=== PATIENT | female | born 1960 | race Caucasian/White ===

== ENCOUNTER → 2019-12-09 | Emergency (ER) | payer SELFPAY ==
[~2019-12-09] VITALS: Ht 162.6 cm; Wt 68.0 kg
[~2019-12-09] MED LIST: ONDANSETRON HCL 4 MG/2 ML VIAL IV ONE; OXYB5TAB24 PO; [UNRECOGNIZED DRUG - CODE] PO; [UNRECOGNIZED DRUG - CODE] PO; cefTRIAXone 1GM/50ML D5W 50 ML IV ONE; cloNIDine HCL 0.1 MG TAB PO ONE
[2019-12-09 20:09] LABS: Urine Bacteria FEW /hpf (None Seen); Urine Blood 1+ /uL (Negative); Urine Hyaline Cast FEW /lpf (0 - 2); Urine Mucus FEW (None Seen); Urine Specific Gravity 1.024 (1.001-1.035); Urine WBC 153 /hpf (0 - 5)
[2019-12-09 20:18] LABS: Basophils # (auto) 0.1 10 ^3/uL (0-0.2); Hemoglobin 15.3 g/dL (12.2-16.2); Monocytes # (auto) 0.5 10 ^3/uL (0-1.3); Monocytes % (auto) 5.9 % (0.0-12.0)
[2019-12-09 20:20] LABS: Basophils % (auto) 0.7 % (0.0-2.0); Eosinophils # (auto) 0.1 10 ^3/uL (0-0.8); Eosinophils % (auto) 0.7 % (0.0-7.0); Hematocrit 44.1 % (36.0-46.0); Lymphocytes # (auto) 2.5 10 ^3/uL (0.4-5.4); Lymphocytes % (auto) 27.6 % (10.0-50.0); Mean Corpuscular Hemoglobin 36.7 pg (28.0-32.0); Mean Corpuscular Hgb Conc. 34.7 g/dL (32.0-36.0); Neutrophils # (auto) 5.9 10 ^3/uL (1.6-8.6); Neutrophils % (auto) 65.1 % (37.0-80.0); Platelet Count (auto) 177 10^3/uL (140-450); Red Blood Cells 4.16 10^6/uL (4.0-5.20); Red Cell Distribution Width 13.9 % (11.8-14.3)
[2019-12-09 20:24] LABS: Amphetamine Screen, Urine NEGATIVE (NEGATIVE); Barbiturate Scree,Urine NEGATIVE (NEGATIVE); Benzodiazephine Screen, Urine NEGATIVE (NEGATIVE); Cannabinoid Screen, Urine POSITIVE (NEGATIVE); Cocaine Screen, Urine NEGATIVE (NEGATIVE); Opiate Scree,Urine NEGATIVE (NEGATIVE); Phencyclidine Screen, Urine NEGATIVE (NEGATIVE)
[2019-12-09 20:32] LABS: Alanine Aminotransferase 109 U/L (13-56); Albumin 3.6 g/dL (3.4-5.0); Anion Gap 12 (5-15); Aspartate Aminotransferase 116 U/L (15-37); BUN/Creatinine Ratio 23.2; Blood Urea Nitrogen 16 mg/dL (7-18); Calcium 8.6 mg/dL (8.5-10.1); Carbon Dioxide 20 mmol/L (21-32); Chloride 105 mmol/L (98-107); GFR African American 112 mL/min; GFR Non-African American 93 mL/min; Glucose 93 mg/dL (74-106); Potassium 3.1 mmol/L (3.5-5.1); Sodium 137 mmol/L (136-145)
[2019-12-09 20:37] LABS: Alkaline Phosphatase 85 U/L (45-117); Bilirubin, Total 0.4 mg/dL (0.2-1.0); Total Protein 8.2 g/dL (6.4-8.2)
[2019-12-09 20:43] LABS: INR 1.01 (0.9-1.15); Partial Thromboplastin Time 27.1 sec (23.64-32.05)
[2019-12-09 23:00] VITALS: BP 170/83
== END | disposition home or self-care (01) ==
LOC: EDUNIT# 18:38 → EDBD 18:48 → ER 18:49
DX: I16.0 Hypertensive urgency (principal); J01.00 Acute maxillary sinusitis, unspecified; N39.0 Urinary tract infection, site not specified; I48.91 Unspecified atrial fibrillation; F17.210 Nicotine dependence, cigarettes, uncomplicated; Z88.0 Allergy status to penicillin; Z88.6 Allergy status to analgesic agent
CPT/HCPCS: 36415; 71045; 80053; 80307; 81001; 84484; 85025; 85610; 85730; 87086; 93005; 96365; 96375; 99285; J0696; J2405

== ENCOUNTER 2020-03-16 20:03 | Emergency (ER) | payer MEDICAID ==
[~2020-03-16] VITALS: Ht 162.6 cm; Wt 65.8 kg
[~2020-03-16 20:03] MED LIST changes: -ONDANSETRON HCL 4 MG/2 ML VIAL IV ONE; -cefTRIAXone 1GM/50ML D5W 50 ML IV ONE; -cloNIDine HCL 0.1 MG TAB PO ONE
[2020-03-16 20:43] VITALS: BP 185/105
[2020-03-16] MEDS ORDERED: cloNIDine HCL 0.1 MG TAB PO ONE (21:00)
== END 2020-03-17 01:37 | disposition left against medical advice (07) ==
LOC: ER 20:04
DX: R20.0 Anesthesia of skin (principal); Z53.21 Procedure and treatment not carried out due to patient leaving prior to being seen by health care provider

== ENCOUNTER 2020-03-17 15:07 | Emergency (ER) | payer MEDICAID ==
[~2020-03-17] VITALS: Ht 162.6 cm; Wt 68.0 kg
[2020-03-17 16:14] VITALS: BP 149/83
== END 2020-03-17 16:51 | disposition home or self-care (01) ==
LOC: ER 15:07
DX: L40.9 Psoriasis, unspecified (principal); Z76.0 Encounter for issue of repeat prescription; I10 Essential (primary) hypertension

== ENCOUNTER 2021-03-25 22:32 | Inpatient (IN) | payer MEDICAID, OTHER ==
[~2021-03-25] VITALS: Ht 162.6 cm; Wt 71.1 kg
[2021-03-25 23:35] LABS: Eosinophils # (auto) 0.1 10 ^3/uL (0-0.8); Mean Corpuscular Hemoglobin 36.2 pg (28.0-32.0); Monocytes # (auto) 0.6 10 ^3/uL (0-1.3); Nucleated Red Blood Cells % 0.1 %
[2021-03-25 23:37] LABS: Basophils # (auto) 0.1 10 ^3/uL (0-0.2); Basophils % (auto) 1.4 % (0.0-2.0); Hematocrit 42.5 % (36.0-46.0); Hemoglobin 15.1 g/dL (12.2-16.2); Lymphocytes # (auto) 2.6 10 ^3/uL (0.4-5.4); Lymphocytes % (auto) 36.3 % (10.0-50.0); Mean Corpuscular Hgb Conc. 35.4 g/dL (32.0-36.0); Mean Corpuscular Volume 102.2 fL (80.0-100.0); Monocytes % (auto) 8.6 % (0.0-12.0); Neutrophils # (auto) 3.8 10 ^3/uL (1.6-8.6); Neutrophils % (auto) 52.7 % (37.0-80.0); Platelet Count (auto) 169 10^3/uL (140-450); Red Blood Cells 4.16 10^6/uL (4.0-5.20); Red Cell Distribution Width 16.1 % (11.8-14.3); White Blood Cell 7.3 10^3/uL (4.4-10.8)
[2021-03-25 23:50] LABS: Albumin 3.3 g/dL (3.4-5.0); Calcium 8.7 mg/dL (8.5-10.1); Potassium 3.9 mmol/L (3.5-5.1)
[2021-03-25 23:53] LABS: BUN/Creatinine Ratio 15.4; Bilirubin, Total 0.4 mg/dL (0.2-1.0); Total Protein 7.6 g/dL (6.4-8.2)
[2021-03-26 01:52] LABS: Urine Bacteria FEW /hpf (None Seen); Urine Hyaline Cast MANY /lpf (0 - 2); Urine Mucus MODERATE (None Seen); Urine Specific Gravity 1.027 (1.001-1.035); Urine WBC 24 /hpf (0 - 5)
[2021-03-26 02:06] LABS: Urine Blood TRACE /uL (Negative)
[2021-03-26] MEDS ORDERED: MORPHINE SULF INJ 2 MG/ML SYRINGE 1ML IV PRN (07:00)
[2021-03-26] MEDS ORDERED: DOCUSATE SOD 100 MG CAP PO PRN (07:00)
[2021-03-26] MEDS ORDERED: HYDROcodone-ACET 5/325MG TAB PO PRN (07:00)
[2021-03-26] MEDS ORDERED: NITROGLYCERIN 0.4 MG SL TAB SL PRN (07:00)
[2021-03-26] MEDS ORDERED: ACETAMINOPHEN 325 MG TAB PO PRN (07:00)
[2021-03-26] MEDS ORDERED: ONDANSETRON HCL 4 MG/2 ML VIAL IV PRN (07:00)
[2021-03-26] MEDS: SOD CHL 0.45% 1,000 ML IV SCH ×2 (07:32→20:20)
[2021-03-26 07:45] LABS: Basophils # (auto) 0.2 10 ^3/uL (0-0.2); Basophils % (auto) 2.8 % (0.0-2.0); Eosinophils # (auto) 0.1 10 ^3/uL (0-0.8); Eosinophils % (auto) 2.2 % (0.0-7.0); Hematocrit 38.5 % (36.0-46.0); Hemoglobin 13.6 g/dL (12.2-16.2); Lymphocytes # (auto) 2.5 10 ^3/uL (0.4-5.4); Lymphocytes % (auto) 42.8 % (10.0-50.0); Mean Corpuscular Hemoglobin 36.1 pg (28.0-32.0); Mean Corpuscular Hgb Conc. 35.3 g/dL (32.0-36.0); Mean Corpuscular Volume 102.3 fL (80.0-100.0); Monocytes # (auto) 0.5 10 ^3/uL (0-1.3); Monocytes % (auto) 9.2 % (0.0-12.0); Neutrophils # (auto) 2.6 10 ^3/uL (1.6-8.6); Nucleated Red Blood Cells % 0.1 %; Platelet Count (auto) 134 10^3/uL (140-450); Red Blood Cells 3.76 10^6/uL (4.0-5.20); Red Cell Distribution Width 16.6 % (11.8-14.3); White Blood Cell 5.9 10^3/uL (4.4-10.8)
[2021-03-26 07:56] LABS: Albumin 2.8 g/dL (3.4-5.0); BUN/Creatinine Ratio 24.8; Potassium 3.6 mmol/L (3.5-5.1)
[2021-03-26 07:59] LABS: Bilirubin, Total 0.3 mg/dL (0.2-1.0); Total Protein 6.8 g/dL (6.4-8.2)
[2021-03-26] MEDS ORDERED: levoFLOXacin 500MG 100 ML IV ONE (10:00)
[2021-03-26] MEDS: MULTIPLE VITAMIN TAB PO SCH (10:31)
[2021-03-26] MEDS: ASCORBIC ACID 500 MG TAB PO SCH ×2 (10:31→21:18)
[2021-03-26] MEDS: ZINC SULFATE 220mg CAP or TAB PO SCH (10:31)
[2021-03-26] MEDS: FAMOTIDINE 20 MG TAB PO SCH (10:31)
[2021-03-26] MEDS: HEPARIN SODIUM (PORCINE) 5000 UNITS/ML 1ML VIAL SC SCH ×2 (10:31→21:30)
[2021-03-26] MEDS ORDERED: LISI40TA11 PO (11:42)
[2021-03-26 12:30] VITALS: BP 105/64
[2021-03-26] MEDS: SODIUM CHLOR 0.9% PF (SALINE LOCK) 10ML VIAL/SYR IV SCH ×2 (14:00→21:19)
[2021-03-26 17:00] VITALS: BP 122/74
[2021-03-26 20:00] VITALS: BP 146/80
[2021-03-26 22:00] VITALS: BP 156/80
[2021-03-27 05:26] LABS: Basophils # (auto) 0 10 ^3/uL (0-0.2); Basophils % (auto) 0.6 % (0.0-2.0); Eosinophils # (auto) 0.2 10 ^3/uL (0-0.8); Eosinophils % (auto) 4.1 % (0.0-7.0); Hematocrit 39.3 % (36.0-46.0); Lymphocytes # (auto) 2.1 10 ^3/uL (0.4-5.4); Lymphocytes % (auto) 46.6 % (10.0-50.0); Mean Corpuscular Hemoglobin 36.6 pg (28.0-32.0); Mean Corpuscular Hgb Conc. 35.7 g/dL (32.0-36.0); Mean Corpuscular Volume 102.7 fL (80.0-100.0); Monocytes # (auto) 0.4 10 ^3/uL (0-1.3); Monocytes % (auto) 7.7 % (0.0-12.0); Neutrophils # (auto) 1.9 10 ^3/uL (1.6-8.6); Nucleated Red Blood Cells % 0.1 %; Platelet Count (auto) 109 10^3/uL (140-450); Red Blood Cells 3.82 10^6/uL (4.0-5.20); Red Cell Distribution Width 16.4 % (11.8-14.3); White Blood Cell 4.6 10^3/uL (4.4-10.8)
[2021-03-27 05:48] VITALS: BP 126/89
[2021-03-27 05:49] LABS: Potassium 3.8 mmol/L (3.5-5.1)
[2021-03-27 06:01] LABS: Albumin 2.8 g/dL (3.4-5.0); BUN/Creatinine Ratio 28.4; Bilirubin, Total 0.4 mg/dL (0.2-1.0); Calcium 8.3 mg/dL (8.5-10.1); Total Protein 6.6 g/dL (6.4-8.2)
[2021-03-27] MEDS: SODIUM CHLOR 0.9% PF (SALINE LOCK) 10ML VIAL/SYR IV SCH (06:08)
[2021-03-27] MEDS: ZINC SULFATE 220mg CAP or TAB PO SCH (09:23)
[2021-03-27] MEDS: MULTIPLE VITAMIN TAB PO SCH (09:23)
[2021-03-27] MEDS: FAMOTIDINE 20 MG TAB PO SCH (09:23)
[2021-03-27] MEDS: ASCORBIC ACID 500 MG TAB PO SCH (09:23)
[2021-03-27] MEDS: HEPARIN SODIUM (PORCINE) 5000 UNITS/ML 1ML VIAL SC SCH (09:30)
[2021-03-27] MEDS ORDERED: levoFLOXacin 250MG 50 ML IV SCH (10:00)
[2021-03-27 11:23] VITALS: BP 139/68
== END 2021-03-27 12:00 | disposition home or self-care (01) | DRG 641 ==
LOC: ER 22:32 → OVERFLOW 03-26 06:53 → WEST WING 03-26 10:53
PROVIDERS: ADMIT Nurse Practitioner Family; ATTEND Internal Medicine
DX: E86.0 Dehydration (principal); N39.0 Urinary tract infection, site not specified; E88.09 Other disorders of plasma-protein metabolism, not elsewhere classified; R73.9 Hyperglycemia, unspecified; F17.210 Nicotine dependence, cigarettes, uncomplicated; I10 Essential (primary) hypertension; N28.9 Disorder of kidney and ureter, unspecified; Z80.9 Family history of malignant neoplasm, unspecified; Z82.3 Family history of stroke; Z83.3 Family history of diabetes mellitus; F41.9 Anxiety disorder, unspecified; D64.9 Anemia, unspecified; Z88.6 Allergy status to analgesic agent; Z88.0 Allergy status to penicillin; Z88.8 Allergy status to other drugs, medicaments and biological substances; Z20.822 Contact with and (suspected) exposure to COVID-19
CPT/HCPCS: 36415; 71045; 80053; 81001; 83036; 84484; 85025; 85049; 85379; 87086; 87426; 96365; G0378; J1956

== ENCOUNTER 2021-07-31 13:11 | Emergency (ER) | payer OTHER ==
[~2021-07-31] VITALS: Ht 162.6 cm; Wt 68.0 kg
[~2021-07-31 13:11] MED LIST changes: +LISI40TA11 PO
[2021-07-31] MEDS ORDERED: HYDROcodone-ACET 10/325MG TAB PO ONE (13:30)
[2021-07-31 13:37] LABS: Urine Bacteria FEW /hpf (None Seen); Urine Blood 2+ /uL (Negative); Urine Mucus FEW (None Seen); Urine Specific Gravity 1.022 (1.001-1.035); Urine WBC 36 /hpf (0 - 5)
[2021-07-31 15:23] LABS: Basophils # (auto) 0.1 10 ^3/uL (0-0.2); Basophils % (auto) 0.8 % (0.0-2.0); Eosinophils # (auto) 0 10 ^3/uL (0-0.8); Eosinophils % (auto) 0.4 % (0.0-7.0); Hematocrit 42.1 % (36.0-46.0); Hemoglobin 14.9 g/dL (12.2-16.2); Lymphocytes # (auto) 1.4 10 ^3/uL (0.4-5.4); Lymphocytes % (auto) 20.3 % (10.0-50.0); Mean Corpuscular Hemoglobin 36.9 pg (28.0-32.0); Mean Corpuscular Hgb Conc. 35.3 g/dL (32.0-36.0); Mean Corpuscular Volume 104.6 fL (80.0-100.0); Monocytes # (auto) 0.4 10 ^3/uL (0-1.3); Monocytes % (auto) 6.5 % (0.0-12.0); Neutrophils # (auto) 4.8 10 ^3/uL (1.6-8.6); Nucleated Red Blood Cells % 0.1 %; Red Blood Cells 4.03 10^6/uL (4.0-5.20); Red Cell Distribution Width 15.9 % (11.8-14.3); White Blood Cell 6.7 10^3/uL (4.4-10.8)
[2021-07-31 15:35] LABS: Potassium 3.7 mmol/L (3.5-5.1)
[2021-07-31 15:54] LABS: Albumin 2.9 g/dL (3.4-5.0); BUN/Creatinine Ratio 14.7; Bilirubin, Total 0.4 mg/dL (0.2-1.0); Calcium 8.7 mg/dL (8.5-10.1); Total Protein 7.4 g/dL (6.4-8.2)
[2021-07-31 16:35] VITALS: BP 126/79
== END 2021-07-31 17:15 | disposition home or self-care (01) ==
LOC: ER 13:11
DX: N39.0 Urinary tract infection, site not specified (principal); F41.9 Anxiety disorder, unspecified; J44.9 Chronic obstructive pulmonary disease, unspecified; I10 Essential (primary) hypertension; F17.210 Nicotine dependence, cigarettes, uncomplicated; Z88.6 Allergy status to analgesic agent; Z88.0 Allergy status to penicillin; Z79.899 Other long term (current) drug therapy
CPT/HCPCS: 36415; 74176; 80053; 81001; 85025

== ENCOUNTER 2021-10-02 20:39 | Emergency (ER) | payer OTHER ==
[~2021-10-02] VITALS: Ht 162.6 cm; Wt 71.7 kg
[2021-10-02 23:25] LABS: Eosinophils # (auto) 0 10 ^3/uL (0-0.8); Hematocrit 45.3 % (36.0-46.0); Neutrophils # (auto) 4.3 10 ^3/uL (1.6-8.6)
[2021-10-02 23:28] LABS: Basophils # (auto) 0.1 10 ^3/uL (0-0.2); Basophils % (auto) 1.3 % (0.0-2.0); Eosinophils % (auto) 0.6 % (0.0-7.0); Hemoglobin 16.1 g/dL (12.2-16.2); Lymphocytes # (auto) 1.5 10 ^3/uL (0.4-5.4); Mean Corpuscular Hemoglobin 36.4 pg (28.0-32.0); Mean Corpuscular Hgb Conc. 35.7 g/dL (32.0-36.0); Mean Corpuscular Volume 101.9 fL (80.0-100.0); Monocytes # (auto) 0.5 10 ^3/uL (0-1.3); Monocytes % (auto) 7.4 % (0.0-12.0); Neutrophils % (auto) 66.7 % (37.0-80.0); Nucleated Red Blood Cells % 0.1 %; Red Blood Cells 4.44 10^6/uL (4.0-5.20); White Blood Cell 6.4 10^3/uL (4.4-10.8)
[2021-10-02 23:43] LABS: Calcium 8.7 mg/dL (8.5-10.1); Potassium 3.6 mmol/L (3.5-5.1)
[2021-10-03 00:02] LABS: Albumin 3.5 g/dL (3.4-5.0); BUN/Creatinine Ratio 18.3; Bilirubin, Total 0.9 mg/dL (0.2-1.0); Total Protein 8.8 g/dL (6.4-8.2)
[2021-10-03 02:51] VITALS: BP 155/94
== END 2021-10-03 02:49 | disposition home or self-care (01) ==
LOC: EDBD 20:39 → ER 20:40
DX: I10 Essential (primary) hypertension (principal); J44.9 Chronic obstructive pulmonary disease, unspecified; F17.210 Nicotine dependence, cigarettes, uncomplicated; Z86.2 Personal history of diseases of the blood and blood-forming organs and certain disorders involving the immune mechanism; Z79.899 Other long term (current) drug therapy; Z88.0 Allergy status to penicillin; Z88.8 Allergy status to other drugs, medicaments and biological substances
CPT/HCPCS: 36415; 80053; 84484; 85025; 93005

== ENCOUNTER 2021-10-17 08:06 | Emergency (ER) | payer OTHER ==
[~2021-10-17] VITALS: Ht 162.6 cm; Wt 71.2 kg
[2021-10-17 09:00] LABS: Barbiturate Scree,Urine NEGATIVE (NEGATIVE); Benzodiazephine Screen, Urine NEGATIVE (NEGATIVE); Cannabinoid Screen, Urine POSITIVE (NEGATIVE); Cocaine Screen, Urine NEGATIVE (NEGATIVE); Opiate Scree,Urine NEGATIVE (NEGATIVE); Phencyclidine Screen, Urine NEGATIVE (NEGATIVE)
[2021-10-17 09:07] LABS: Amphetamine Screen, Urine NEGATIVE (NEGATIVE)
[2021-10-17 09:15] LABS: Urine Bacteria FEW /hpf (None Seen); Urine Blood 2+ /uL (Negative); Urine Mucus FEW (None Seen); Urine Specific Gravity 1.014 (1.001-1.035); Urine WBC 43 /hpf (0 - 5)
[2021-10-17] MEDS ORDERED: LORazepam 0.5 MG TAB PO ONE (10:00)
[2021-10-17 10:28] LABS: Eosinophils # (auto) 0 10 ^3/uL (0-0.8); Hemoglobin 15.7 g/dL (12.2-16.2); Lymphocytes # (auto) 1.4 10 ^3/uL (0.4-5.4); Monocytes # (auto) 0.5 10 ^3/uL (0-1.3); Nucleated Red Blood Cells % 0.1 %
[2021-10-17 10:30] LABS: Basophils # (auto) 0.1 10 ^3/uL (0-0.2); Eosinophils % (auto) 0.3 % (0.0-7.0); Hematocrit 46.5 % (36.0-46.0); Lymphocytes % (auto) 24.9 % (10.0-50.0); Mean Corpuscular Hemoglobin 35.4 pg (28.0-32.0); Mean Corpuscular Hgb Conc. 33.7 g/dL (32.0-36.0); Monocytes % (auto) 8.1 % (0.0-12.0); Neutrophils # (auto) 3.8 10 ^3/uL (1.6-8.6); Neutrophils % (auto) 65.7 % (37.0-80.0); Red Blood Cells 4.43 10^6/uL (4.0-5.20); Red Cell Distribution Width 15.6 % (11.8-14.3); White Blood Cell 5.7 10^3/uL (4.4-10.8)
[2021-10-17 10:48] LABS: Potassium 4.4 mmol/L (3.5-5.1)
[2021-10-17 11:02] LABS: Albumin 3.4 g/dL (3.4-5.0); Bilirubin, Total 0.4 mg/dL (0.2-1.0); Calcium 9.1 mg/dL (8.5-10.1); Total Protein 9.1 g/dL (6.4-8.2)
[2021-10-17] MEDS ORDERED: NITR-87 PO (11:37)
[2021-10-17 14:52] VITALS: BP 158/99
== END 2021-10-17 16:42 | disposition home or self-care (01) ==
LOC: ER 08:06
DX: I16.0 Hypertensive urgency (principal); J44.9 Chronic obstructive pulmonary disease, unspecified; F17.210 Nicotine dependence, cigarettes, uncomplicated; N39.0 Urinary tract infection, site not specified; F10.230 Alcohol dependence with withdrawal, uncomplicated; Z98.51 Tubal ligation status; Z88.0 Allergy status to penicillin; Z88.8 Allergy status to other drugs, medicaments and biological substances; Y90.9 Presence of alcohol in blood, level not specified
CPT/HCPCS: 36415; 80053; 80307; 80320; 81001; 84484; 85025; 93005